=== PATIENT | female | born 1995 | race Caucasian/White ===

== ENCOUNTER 2018-03-18 21:40 | Emergency (ER) | payer OTHER ==
[~2018-03-18] VITALS: Ht 165.1 cm; Wt 109.8 kg
[2018-03-18 21:44] VITALS: Ht 165.1 cm; Wt 109.8 kg
[2018-03-18 23:07] VITALS: BP 127/84
== END 2018-03-18 23:07 | disposition home or self-care (01) ==
LOC: ED 21:40
DX: S50.851A Superficial foreign body of right forearm, initial encounter (principal); W45.8XXA Other foreign body or object entering through skin, initial encounter; Y93.89 Activity, other specified; Y92.89 Other specified places as the place of occurrence of the external cause; Y99.8 Other external cause status
CPT/HCPCS: 90715; J2001